=== PATIENT | male | born 1945 | race Caucasian/White ===

== ENCOUNTER 2019-08-05 11:51 | Outpatient (CLI) | payer OTHER | END 2019-08-05 14:31 | disposition home or self-care (01) | LOC: RAD 11:51 | DX: R05 Cough (principal) ==

== ENCOUNTER 2019-10-04 14:21 | Outpatient (CLI) | payer OTHER | END 2019-10-04 14:24 | disposition home or self-care (01) | LOC: SONOGRAMA 14:21 | DX: D29.20 Benign neoplasm of unspecified testis (principal); N43.2 Other hydrocele ==

== ENCOUNTER 2019-10-31 10:36 | Outpatient (CLI) | payer OTHER | END 2019-10-31 10:37 | disposition home or self-care (01) | LOC: RAD 10:36 | DX: E78.00 Pure hypercholesterolemia, unspecified (principal); I86.1 Scrotal varices ==

== ENCOUNTER → 2019-11-01 12:45 | Outpatient (CLI) | payer OTHER | END | disposition home or self-care (01) | LOC: EKG 12:45 | DX: I10 Essential (primary) hypertension (principal) ==

== ENCOUNTER → 2019-12-30 | Emergency (ER) | payer OTHER ==
[~2019-12-30] VITALS: Ht 180.3 cm; Wt 90.7 kg
[~2019-12-30] MED LIST: ASPIR 8181 MG; COZAAR50 MG; DILTIAZEM 24HR180 MG; XARELTO10 MG
== END | disposition designated cancer center or children's hospital (05) ==
LOC: ER 17:31
DX: I61.8 Other nontraumatic intracerebral hemorrhage (principal); G93.6 Cerebral edema; I63.89 Other cerebral infarction; I10 Essential (primary) hypertension; G81.94 Hemiplegia, unspecified affecting left nondominant side